=== PATIENT | female | born 1965 | race American Indian/Alaskan Native ===

== ENCOUNTER 2016-04-17 12:20 | Outpatient (CLI) | payer OTHER ==
--- NOTE | 2016-04-17 14:31 | Mammography Report ---
BILATERAL DIGITAL DIAGNOSTIC MAMMOGRAM with CAD and RIGHT BREAST ULTRASOUND: 04/17/16 12:20:00 CLINICAL: Sporadic spontaneous clear right nipple discharge. COMPARISON:08/24/15 FINDINGS: The breasts are predominantly fatty with scattered bilateral fibroglandular densities.No mass, architectural distortion or suspicious calcifications. Ultrasound of the right breast (including all four quadrants and the retroareolar area) was performed and demonstrated normal fibroglandular and fatty structures. No mass, cyst or shadowing. IMPRESSION: Negative mammogram and negative right breast ultrasound. BI-RADS CATEGORY: 1 - - Negative RECOMMENDATION: Clinical followup and routine mammographic screening in one year. ACR BI-RADS MAMMOGRAPHIC CODES: 0 = Needs additional imaging evaluation; 1 = Negative; 2 = Benign; 3 = Probably benign; 4 = Suspicious; 5 = Malignant; 6 = Known biopsy-proven malignancy COMMENT: 1. Dense breast tissue, i.e., adenosis, fibrocystic changes, etc., may obscure an underlying neoplasm. 2. Approximately 10% of cancers are not detected with mammography. 3. A negative mammography report should not delay biopsy if a clinically suspicious mass is present. COMMENT: Patient follow-up letters are generated by our [employer] application.
== END 2016-04-17 12:21 | disposition home or self-care (01) ==
LOC: SPVWC 12:20
PROVIDERS: ATTEND Obstetrics & Gynecology
DX: N64.52 Nipple discharge (principal)
CPT/HCPCS: 76641; G0204; 77066

== ENCOUNTER 2017-04-21 08:11 | Outpatient (CLI) | payer OTHER ==
--- NOTE | 2017-04-21 09:07 | Mammography Report ---
Bilateral mammogram: Compared to 08/24/15 and 04/17/16. Findings: Predominance of adipose tissue bilaterally. Benign calcification right breast. A new 3 mm circumscribed density lower anterior left breast seen on MLO view only. Normal axilla. Impression: New focal dense asymmetry lower anterior left breast. Recommend spot mag and sonographic examination. BI-RADS CATEGORY: 0 = Needs additional imaging evaluation ACR BI-RADS MAMMOGRAPHIC CODES: 0 = Needs additional imaging evaluation; 1 = Negative; 2 = Benign; 3 = Probably benign; 4 = Suspicious; 5 = Malignant; 6 = Known biopsy-proven malignancy COMMENT: 1. Dense breast tissue, i.e., adenosis, fibrocystic changes, etc., may obscure an underlying neoplasm. 2. Approximately 10% of cancers are not detected with mammography. 3. A negative mammography report should not delay biopsy if a clinically suspicious mass is present. COMMENT: Patient follow-up letters are generated in [employer].
== END 2017-04-21 08:12 | disposition home or self-care (01) ==
LOC: SPVWC 08:11
PROVIDERS: ATTEND Obstetrics & Gynecology
DX: Z12.31 Encounter for screening mammogram for malignant neoplasm of breast (principal)
CPT/HCPCS: 77067

== ENCOUNTER 2017-05-01 10:08 | Outpatient (CLI) | payer OTHER ==
--- NOTE | 2017-05-01 10:28 | Mammography Report ---
LEFT DIGITAL DIAGNOSTIC MAMMOGRAM : 05/01/17 10:08:00 CLINICAL: Recalled for asymmetry. COMPARISON:04/21/17 screening FINDINGS: Lateralmedial and spot compression MLO views were performed and are negative. IMPRESSION: Negative Mammogram. BI-RADS CATEGORY: 1 -- Negative RECOMMENDATION: Routine mammographic screening in one year. ACR BI-RADS MAMMOGRAPHIC CODES: 0 = Needs additional imaging evaluation; 1 = Negative; 2 = Benign; 3 = Probably benign; 4 = Suspicious; 5 = Malignant; 6 = Known biopsy-proven malignancy COMMENT: 1. Dense breast tissue, i.e., adenosis, fibrocystic changes, etc., may obscure an underlying neoplasm. 2. Approximately 10% of cancers are not detected with mammography. 3. A negative mammography report should not delay biopsy if a clinically suspicious mass is present. COMMENT: Patient follow-up letters are generated via our [employer] application.
== END 2017-05-01 10:09 | disposition home or self-care (01) ==
LOC: SPVWC 10:08
PROVIDERS: ATTEND Obstetrics & Gynecology
DX: R92.8 Other abnormal and inconclusive findings on diagnostic imaging of breast (principal)

== ENCOUNTER 2019-04-23 08:15 | Outpatient (CLI) | payer BC ==
--- NOTE | 2019-04-26 09:07 | Mammography Report ---
DIGITAL SCREENING MAMMOGRAM WITH CAD, 04/23/2019 INDICATION: Routine screening mammography. TECHNIQUE: Digital bilateral 2D mammography was obtained in the craniocaudal and mediolateral obliq ue projections. This examination was interpreted with the benefit of Computer-Aided Detection analysi s. COMPARISON: 04/22/2018 FINDINGS: Breast Density: The breasts are heterogeneously dense, which may obscure small masses. There is no evidence of dominant mass, suspicious calcifications or architectural distortion in eithe r breast. IMPRESSION: No mammographic evidence of malignancy. Follow up recommendation: Routine yearly BI-RADS Category 1: Negative. A "normal" or negative report should not discourage follow up or biopsy of a clinically significant f inding. A written summary of these findings will be mailed to the patient. The patient will be entered into a mammography reporting system which will generate a reminder letter for the patient's next appointmen t at the appropriate interval. The [employer] recommends yearly mammograms starting at age 40 and continuing as l halie as a woman is in good health. Breast MRI is recommended for women with an approximate 20-25% or greater lifetime risk of breast cancer, including women with a strong family history of breast or ova jose cancer or who have been treated for Hodgkin's disease. Signer Name: Major Perez MD Signed: 04/26/2019 9:02 AM Workstation Name: [id number]
== END 2019-04-23 08:16 | disposition home or self-care (01) ==
LOC: SPVWC 08:15
PROVIDERS: ATTEND Obstetrics & Gynecology
DX: Z12.31 Encounter for screening mammogram for malignant neoplasm of breast (principal)
CPT/HCPCS: 77067

== ENCOUNTER 2020-04-24 08:34 | Outpatient (CLI) | payer BC ==
--- NOTE | 2020-04-24 09:24 | Mammography Report ---
DIGITAL SCREENING MAMMOGRAM WITH CAD, 04/24/2020 CLINICAL INFORMATION / INDICATION: Routine screening mammography. Is TECHNIQUE: Digital bilateral 2D mammography was obtained in the craniocaudal and mediolateral obliqu e projections. This examination was interpreted with the benefit of Computer-Aided Detection analysis . COMPARISON: 04/21/2017, 04/22/2018, 04/23/2019 FINDINGS: Breast Density: There are scattered areas of fibroglandular density. No dominant mass, suspicious calcifications, or architectural distortion in either breast. IMPRESSION: No mammographic evidence of malignancy. Follow up recommendation: Routine yearly BI-RADS Category 1: Negative. A "normal" or negative report should not discourage follow up or biopsy of a clinically significant f inding. A written summary of these findings will be mailed to the patient. The patient will be entered into a mammography reporting system which will generate a reminder letter for the patient's next appointmen t at the appropriate interval. The [employer] recommends yearly mammograms starting at age 40 and continuing as l halie as a woman is in good health. Breast MRI is recommended for women with an approximate 20-25% or greater lifetime risk of breast cancer, including women with a strong family history of breast or ova jose cancer or who have been treated for Hodgkin's disease. Signer Name: Oscar Elizabeth MD Signed: 04/24/2020 9:20 AM Workstation Name: [id number]
== END 2020-04-24 08:35 | disposition home or self-care (01) ==
LOC: SPVWC 08:34
PROVIDERS: ATTEND Obstetrics & Gynecology
DX: Z12.31 Encounter for screening mammogram for malignant neoplasm of breast (principal)
CPT/HCPCS: 77067

== ENCOUNTER 2021-04-25 08:14 | Outpatient (CLI) | payer BC ==
--- NOTE | 2021-04-26 12:31 | Mammography Report ---
DIGITAL SCREENING MAMMOGRAM WITH CAD, 04/25/2021 CLINICAL INFORMATION / INDICATION: Routine screening mammography. SCREENING MAMMOGRAM TECHNIQUE: Digital bilateral 2D mammography was obtained in the craniocaudal and mediolateral obliqu e projections. This examination was interpreted with the benefit of Computer-Aided Detection analysis . COMPARISON: 04/23/2019 and 04/24/2020. FINDINGS: Breast Density: There are scattered areas of fibroglandular density. No dominant mass, suspicious calcifications, or architectural distortion in either breast. IMPRESSION: No mammographic evidence of malignancy. Follow up recommendation: Routine yearly BI-RADS Category 1: NEGATIVE A "normal" or negative report should not discourage follow up or biopsy of a clinically significant f inding. A written summary of these findings will be mailed to the patient. The patient will be entered into a mammography reporting system which will generate a reminder letter for the patient's next appointmen t at the appropriate interval. The [employer] recommends yearly mammograms starting at age 40 and continuing as l halie as a woman is in good health. Breast MRI is recommended for women with an approximate 20-25% or greater lifetime risk of breast cancer, including women with a strong family history of breast or ova jose cancer or who have been treated for Hodgkin's disease. Signer Name: Chaz Mcbride MD Signed: 04/26/2021 12:26 PM Workstation Name: [id number]
== END 2021-04-25 08:15 | disposition home or self-care (01) ==
LOC: SPVWC 08:14
PROVIDERS: ATTEND Obstetrics & Gynecology
DX: Z12.31 Encounter for screening mammogram for malignant neoplasm of breast (principal)
CPT/HCPCS: 77067

== ENCOUNTER 2021-07-05 18:26 | Emergency (ER) | payer BC ==
[2021-07-05] MEDS ORDERED: OXYMETAZOLINE 0.05% NASAL SPRAY NS ONE (21:35)
[2021-07-05] MEDS ORDERED: hydrALAZINE 25 MG TAB PO ONE (21:36)
--- NOTE | 2021-07-05 22:49 | Emergency Department Report ---
ED General Adult HPI - General Chief complaint: Nosebleed Stated complaint: NOSE BLEED/ELEVATED BP Time Seen by Provider: 07/05/21 22:45 Source: patient Mode of arrival: Ambulatory Limitations: No Limitations - History of Present Illness Initial comments: Is a 56-year-old female with history of nosebleeds and hypertension who presents for right nostril nosebleed x2 days. Patient saw primary care doctor on yesterday started on Nasonex. However patient states nosebleed has continued for the day. Patient rates symptoms at 4/10. With moderate bleeding bleeding is controlled temporarily with direct pressure and self packing with gauze. Patient denies dizziness or lightheadedness there is no chest pain no nausea no vomiting. Patient vital signs noted today for elevated blood pressure patient is currently taking hydralazine and metoprolol has not had medications today. Patient denies exacerbating factors relieving factors are none nose blowing and activity. Patient did drive self to ED tonight. Patient is alert oriented x3 amatory steady gait in no acute distress. Severity scale (0 -10): 0 - Related Data Home Medications Medication Instructions Recorded Confirmed Last Taken Olmesartan/Hydrochlorothiazide 1 tab PO QDAY 03/30/13 03/30/13 03/30/13 11:00 [Benicar HCT 20-12.5 mg] Potassium Chloride [K-Dur] 20 meq PO QDAY 03/30/13 03/30/13 03/30/13 11:00 Previous Rx's Medication Instructions Recorded Last Taken Type Guaifenesin/Codeine Phosphate 15 ml PO Q6H PRN #100 ml 03/30/13 Unknown Rx [Cheratussin AC Syrup] Ondansetron [Zofran Odt] 4 mg PO Q8HR PRN #12 tab.rapdis 07/05/21 Unknown Rx Oxymetazoline 0.05% [Vicks Sinex] 2 spray NS PRN PRN #1 bottle 07/05/21 Unknown Rx Allergies Allergy/AdvReac Type Severity Reaction Status Date / Time amlodipine Allergy Hives Verified 07/05/21 19:30 lisinopril Allergy Angioedema Verified 07/05/21 19:30 ED Review of Systems ROS: Stated complaint: NOSE BLEED/ELEVATED BP Other details as noted in HPI Constitutional: denies: chills, fever Eyes: denies: eye pain, eye discharge, vision change ENT: epistaxis. denies: congestion Respiratory: denies: cough, shortness of breath, wheezing Cardiovascular: denies: chest pain, palpitations Endocrine: no symptoms reported Gastrointestinal: denies: abdominal pain, nausea, diarrhea Genitourinary: denies: urgency, dysuria, discharge Musculoskeletal: denies: back pain, joint swelling, arthralgia Skin: denies: rash, lesions Neurological: denies: headache, weakness, paresthesias, vertigo Psychiatric: denies: anxiety, depression Hematological/Lymphatic: denies: easy bleeding, easy bruising ED Past Medical Hx - Past Medical History Hx Hypertension: Yes - Surgical History Additional Surgical History: x 2. UFE - Social History Smoking Status: Never Smoker Substance Use Type: None - Medications Home Medications: Home Medications Medication Instructions Recorded Confirmed Last Taken Type Guaifenesin/Codeine Phosphate 15 ml PO Q6H PRN #100 ml 03/30/13 Unknown Rx [Cheratussin AC Syrup] Olmesartan/Hydrochlorothiazide 1 tab PO QDAY 03/30/13 03/30/13 03/30/13 11:00 History [Benicar HCT 20-12.5 mg] Potassium Chloride [K-Dur] 20 meq PO QDAY 03/30/13 03/30/13 03/30/13 11:00 Histo ry Ondansetron [Zofran Odt] 4 mg PO Q8HR PRN #12 tab.rapdis 07/05/21 Unknown Rx Oxymetazoline 0.05% [Vicks Sinex] 2 spray NS PRN PRN #1 bottle 07/05/21 Unknown Rx ED Physical Exam - General Limitations: No Limitations General appearance: alert, in no apparent distress - Head Head exam: Present: normocephalic, normal inspection - Eye Eye exam: Present: PERRL, EOMI. Absent: conjunctival injection, nystagmus Pupils: Present: normal accommodation - ENT ENT exam: Present: mucous membranes moist, TM's normal bilaterally, normal external ear exam, other (Epistaxis right nare left nare is patent.) - Expanded ENT Exam Expanded Throat exam: Positive: normal inspection, other (Airways patent uvula midline). Negative: tonsillar erythema, tonsillomegaly, tonsillar exudate - Neck Neck exam: Present: normal inspection, full ROM. Absent: tenderness, lymphadenopathy - Respiratory Respiratory exam: Present: normal lung sounds bilaterally. Absent: wheezes, stridor, chest wall tenderness - Cardiovascular Cardiovascular Exam: Present: regular rate, normal rhythm, normal heart sounds. Absent: systolic murmur, diastolic murmur, rubs, gallop - GI/Abdominal GI/Abdominal exam: Present: soft, normal bowel sounds. Absent: distended, tenderness, bruit, hernia - Rectal Rectal exam: Present: deferred - Extremities Exam Extremities exam: Present: normal inspection, full ROM, normal capillary refill. Absent: tenderness - Back Exam Back exam: Present: normal inspection, full ROM. Absent: CVA tenderness (R), CVA tenderness (L) - Neurological Exam Neurological exam: Present: alert, oriented X3, CN II-XII intact, normal gait - Psychiatric Psychiatric exam: Present: normal affect, normal mood - Skin Skin exam: Present: warm, dry, intact, normal color. Absent: rash ED Course Vital Signs 07/05/21 07/05/21 19:21 22:06 Temperature 98.6 F Pulse Rate 88 Respiratory 20 Rate Blood Pressure 184/90 Blood Pressure 184/90 [Right] O2 Sat by Pulse 100 Oximetry - Procedure Description Procedures done: Right nare epistaxis attempted direct pressure x15 minutes, Afrin nasal spray and gauze packing, nasal rocket 4.5 cm, secured to the right cheek with surgical tape. Bleeding is controlled. BP treated with hydralazine p.o. Epistaxis is controlled at this time. Patient given aftercare instructions including follow-up with ENT in the a.m. Patient verbalized agreement and understanding with same patient tolerated procedure with minimal distress. Left nostril is patent airway is patent no lesions no exudate no swelling no wheezing no cough no stridor. ED Medical Decision Making - Medical Decision Making Epistaxis is resolved. Patient advises Rhino Rocket slipped out. However airway is patent, nares are patent. There is no nosebleeding at this time. Patient did have 1 nausea vomiting episode however nausea vomiting is also resolved. Patient alert oriented x3 patient has ambulated to restroom and back to room without dizziness lightheadedness there is no nausea no vomiting blood pressure is improved. Patient will be DC'd to home. With prescriptions for Afrin, follow-up with ENT in a.m. as directed. Will take blood pressure medications as prescribed. And follow-up with primary care doctor in 2 to 3 days. Patient will return to ED should symptoms worsen. Patient verbalized agreement and understanding with discharge plan. Patient DC'd home in stable condition at this time. Critical care attestation.: If time is entered above; I have spent that time in minutes in the direct care of this critically ill patient, excluding procedure time. ED Disposition Clinical Impression: Epistaxis HTN (hypertension) Qualifiers: Hypertension type: primary hypertension Qualified Code(s): I10 - Essential (primary) hypertension Disposition: HOME / SELF CARE / HOMELESS Is pt being admited?: No Does the pt Need Aspirin: No Condition: Stable Instructions: Hypertension (ED), Hypertension, Adult, [id number], Nosebleed, [id number], Oxymetazoline nasal spray Additional Instructions: Follow-up with ENT in the a.m. Take medications as prescribed. Use Afrin spray as directed. Return to emergency department should symptoms worsen. Prescriptions: Oxymetazoline 0.05% [Vicks Sinex] 2 spray NS PRN PRN #1 bottle PRN Reason: nose bleed Ondansetron [Zofran Odt] 4 mg PO Q8HR PRN #12 tab.rapdis PRN Reason: Nausea Referrals: JANAY ATLAVERA MD [Staff Physician] - 3-5 Days SU GLORIA MD [Staff Physician] - 24 Hours Forms: Work/School Release Form(ED) Time of Disposition: 23:58
[2021-07-06 00:34] VITALS: BP 172/86
== END 2021-07-06 00:34 | disposition home or self-care (01) ==
LOC: ED 18:26
DX: R04.0 Epistaxis (principal); I10 Essential (primary) hypertension; Z79.899 Other long term (current) drug therapy; Z91.09 Other allergy status, other than to drugs and biological substances
CPT/HCPCS: 99282